=== PATIENT | female | born 1995 | race Caucasian/White ===

== ENCOUNTER 2025-02-23 01:46 | Emergency (ER) | payer SELFPAY ==
[~2025-02-23] VITALS: Ht 167.6 cm; Wt 85.0 kg
[2025-02-23 01:59] VITALS: O2SAT 98
[2025-02-23 03:07] LABS: BASOPHILS % 0.4 % (0.0-2.0); EOSINOPHILS % 4.6 % (0.0-5.0); HEMATOCRIT. 33.9 % (36.0-48.0); MEAN CORPUSCULAR HEMOGLOBIN 27.5 pg (28.0-32.0); MEAN CORPUSCULAR HGB CONC 32.5 g/dL (31.0-37.0); MEAN CORPUSCULAR VOLUME 84.6 fL (81.0-99.0); MEAN PLATELET VOLUME 9.7 fl (7.4-10.4); MONOCYTES % 5.6 % (2.0-8.0); NEUTROPHILS % 65.4 % (40.0-76.0); PLATELET 336 x1000/uL (130-400); RED BLOOD CELL COUNT 4.01 mill/uL (4.2-5.4); RED CELL DISTRIBUTION WIDTH 15.1 % (11.6-14.6); WHITE BLOOD COUNT 8.9 x1000/uL (4.5-11.0)
[2025-02-23] MEDS: ONDANSETRON HCL 4MG/2ML INJ IV STA (03:15)
[2025-02-23] MEDS: MORPHINE SULFATE 4 MG/ML INJ (FOR IV/IM USE) IV STA (03:15)
[2025-02-23 03:16] LABS: CHLORIDE 112 mEq/L (98-107); POTASSIUM 4.1 mEq/L (3.5-5.1); SODIUM 143 mEq/L (136-145)
[2025-02-23 03:17] LABS: CARBON DIOXIDE 22 mEq/L (21-32)
[2025-02-23 03:18] LABS: CALCIUM 9.1 mg/dL (8.7-10.4)
[2025-02-23 03:22] LABS: CREATININE 0.8 mg/dL (0.6-1.0); GLUCOSE 96 mg/dL (70-105); UREA NITROGEN BLOOD 8 mg/dL (9-23)
[2025-02-23 04:32] LABS: HCG SCREEN NEGATIVE
[2025-02-23 04:36] VITALS: BP 106/61; PULSE 85; RESP 12; TEMP 37.1; O2SAT 99
[2025-02-23] MEDS ORDERED: IBUP-2029 MT (04:50)
[2025-02-23] MEDS: IOHEXOL-300 100 ML BOTTLE ONE (05:46)
== END 2025-02-23 06:18 | disposition home or self-care (01) ==
LOC: ER 01:46
DX: S09.8XXA Other specified injuries of head, initial encounter (principal); T14.8XXA Other injury of unspecified body region, initial encounter; F10.90 Alcohol use, unspecified, uncomplicated; X58.XXXA Exposure to other specified factors, initial encounter; Y93.89 Activity, other specified; Y92.89 Other specified places as the place of occurrence of the external cause; Y99.8 Other external cause status; Y90.9 Presence of alcohol in blood, level not specified
CPT/HCPCS: 80048; 81025; 84703; 85025; 86850; 86900; 86901; 36415; 73502; 71045; 73560; 70450; 72125; 74177; 96374; 96375; 99291; Q9967; J2405; J2270; Z7610; 99285; A4606